=== PATIENT | female | born 1975 | race Caucasian/White ===

== ENCOUNTER 2025-05-10 10:10 | Emergency (ER) | payer BC, OTHER ==
[2025-05-10] MEDS ORDERED: Sodium Chloride 0.9% 10 ML Syringe FLUSH PRN (11:00)
[2025-05-10 11:14] LABS: BASOPHILS ABSOLUTE AUTO 0.0 K/mm3 (0.0-0.2); BASOPHILS PERCENT AUTO 0.5 % (0.0-1.0); EOSINOPHILS ABSOLUTE AUTO 0.1 K/mm3 (0.0-0.4); EOSINOPHILS PERCENT AUTO 0.7 % (0.0-6.0); IMMATURE GRAN ABSOLUTE AUTO 0.01 K/mm3 (0.00-0.05); IMMATURE GRAN PERCENT AUTO 0.1 % (0.0-0.4); LYMPHOCYTES ABSOLUTE AUTO 2.4 K/mm3 (1.0-4.8); LYMPHOCYTES PERCENT AUTO 32.8 % (24.0-44.0); MEAN PLATELET VOLUME 11.7 fl (9.4-12.3); MONOCYTES ABSOLUTE AUTO 0.7 K/mm3 (0.0-0.8); MONOCYTES PERCENT AUTO 9.0 % (0.0-8.0); NEUTROPHILS ABSOLUTE AUTO 4.2 K/mm3 (1.8-7.7); NEUTROPHILS PERCENT AUTO 56.9 % (41.0-71.0); NRBC ABSOLUTE 0.00 (0.00-0.02); NRBC PERCENT 0.0 % (0.0-0.2); PLATELET COUNT,PLT 220 K/mm3 (150-400); RED BLOOD CELL COUNT 4.55 M/mm3 (4.10-5.30); WHITE BLOOD CELL COUNT,WBC 7.44 K/mm3 (3.9-11.3)
[2025-05-10 11:38] LABS: A/G RATIO 1.0 (1-2); ALANINE AMINOTRANSFERASE,ALT 32 U/L (14-59); ASPARTATE AMNIOTRANSFERASE,AST 19 U/L (15-37); BILIRUBIN TOTAL 0.5 mg/dL (0.2-1.0); BLOOD UREA NITROGEN,BUN 11 mg/dL (7-18); CARBON DIOXIDE,CO2 30 mEq/L (21-32); CHLORIDE,CL 102 mEq/L (98-107); CREATININE 0.8 mg/dL (0.55-1.02); EST CRCL DRUG DOSING (CG) 65.06 mL/min; ESTIMATED GFR 89 mL/min (>60); GLUCOSE RANDOM 106 mg/dL (70-99); POTASSIUM,K 3.9 mEq/L (3.5-5.1); PROTEIN TOTAL,TP 7.7 g/dl (6.4-8.2); SODIUM,NA 135 mEq/L (136-145)
[2025-05-10 11:50] LABS: TROPONIN I HIGH SENSITIVITY < 4 pg/mL (<=51)
[2025-05-10] MEDS: Alum Hydrox/Mag Hydrox/Simeth 30 ML, Lidocaine 2% 15 ML PO ONE (13:40)
== END 2025-05-10 14:20 | disposition home or self-care (01) ==
LOC: JD.ED 10:10
DX: R07.89 Other chest pain (principal); Z88.2 Allergy status to sulfonamides; Z79.890 Hormone replacement therapy; Z79.899 Other long term (current) drug therapy
CPT/HCPCS: 36415; 71045; 71045-26; 80053; 83880; 84484; 84703; 85025; 93005; 93010; 96374; 99284; 99285-25; A9270-GY; J1308